=== PATIENT | female | born 1960 | race Two or more races ===

== ENCOUNTER 2024-05-05 23:25 | Inpatient (IN) | payer MEDICAID, OTHER ==
[~2024-05-05] VITALS: Ht 154.9 cm; Wt 82.8 kg
--- NOTE | 2024-05-05 23:43 | ED.PDOC ---
General HPI Comments 64-year-old female who came to ER for vaginal bleeding. Patient states about 2 years ago she underwent bladder surgery at [facility]. Recently she has been having pelvic pain, and noted that a mass has been protruding out of her vaginal area, associated with watery discharge and vaginal bleeding. Patient has still yet to see an Urologist regarding this issue Chief Complaint: Vaginal Bleeding Time Seen by MD: 23:53 Reviewed notes: Nurses Notes Allergies: Coded Allergies: NO KNOWN ALLERGIES (Unverified , 05/05/24) Information Source: Patient Mode of Arrival: Ambulatory Severity: Moderate Inability to void: Mild Timing: Months Duration: Intermittent Has not urinated for: Minutes Prehospital treatment: None Onset: Spontaneous History of: Recent post-op Past Medical History PAST MEDICAL HISTORY: HTN, Denies Surgical History (Other): Bladder surgery ANODIZER History: Denies all ANODIZER Hx Family History Family History: Reviewed,noncontributory to illness Social History Smoker: Non-Smoker Alcohol: Denies ETOH Use Drugs: Denies Drug Use Lives In: Home Constitutional: denies: chills, diaphoresis, fatigue, fever, malaise, sweats, weakness, others EENTM: denies: blurred vision, double vision, ear bleeding, ear discharge, ear drainage, ear pain, ear ringing, eye pain, eye redness, hearing loss, mouth pain, mouth swelling, nasal discharge, nose bleeding, nose congestion, nose pain, photophobia, tearing, throat pain, throat swelling, voice changes, others Respiratory: denies: cough, hemoptysis, orthopnea, SOB at rest, shortness of breath, SOB with excertion, stridor, wheezing, others Cardiovascular: denies: chest pain, dizzy spells, diaphoresis, Dyspnea on exertion, edema, irregular heart beat, left arm pain, lightheadedness, palpi tations, PND, syncope, others Gastrointestinal: denies: abdomen distended, abdominal pain, blood streaked bowels, constipated, diarrhea, dysphagia, difficulty swallowing, hematemesis, melena, nausea, poor appetite, poor fluid intake, rectal bleeding, rectal pain, vomiting, others Genitourinary: reports: abnormal vagina bleeding, pain; denies: burning, dyspareunia, dysuria, flank pain, frequency, hematuria, incontinence, , vagina discharge, urgency, others Neurological: denies: dizziness, fainting, headache, left sided numbness, left sided weakness, numbness, paresthesia, pre-existing deficit, right sided numbness, right sided weakness, seizure, speech problems, tingling, tremors, weakness, others Musculoskeletal: denies: back pain, gout, joint pain, joint swelling, muscle pain, muscle stiffness, neck pain, others Integumetry: denies: bruises, change in color, change in hair/nails, dryness, laceration, lesions, lumps, rash, wounds, others Allergic/Immunocompromised: denies: Difficulty Healing, Frequent Infections, Hives, Itching, others Hematologic/Lymphatic: denies: anemia, blood clots, easy bleeding, easy bruising, swollen glands, others Endocrine: denies: excessive hunger, excessive sweating, excessive thirst, excessive urination, flushing, intolerance to cold, intolerance to heat, unexp lained weight gain, unexplained weight loss, others Psychiatric: denies: anxiety, bipolar disorder, depression, hopeless, panic disorder, schizophrenia, sleepless, suicidal, others Physical Exam General Appearance: No Apparent Distress, Normal HEENT: Normal ENT Inspection, Pharynx Normal, TMs Normal Neck: Full Range of Motion, Non-Tender, Normal, Normal Inspection Respiratory: Chest Non-Tender, Lungs Clear, No Accessory Muscle Use, No Respiratory Distress, Normal Breath Sounds Cardiovascular: No Edema, No JVD, No Murmur, No Gallop, Normal Peripheral Pulses, Regular Rate/Rhythm Breast Exam: Deferred Gastrointestinal: No Organomegaly, Non Tender, No Pulsatile Mass, Normal Bowel Sounds, Soft Genitalia: Deferred Pelvic: Deferred Rectal: Deferred Extremities: No calf tenderness, Normal capillary refill, Normal inspection, Normal range of motion, Non-tender, No pedal edema Musculoskeletal : Apperance: Normal Neurologic: Alert, guest room attendant II-XII nml as Tested, No Motor Deficits, Normal Affect, Normal Mood, No Sensory Deficits Cerebellar Function: Normal Reflexes: Normal Skin: Dry, Normal Color, Warm Lymphatic: No Adenopathy Was a procedure done? Was a procedure done?: No Differential Diagnosis Kidney stone (Female): N/A Urinary Problem (Female): Post-op complication, Pyelonephritis, Urinary retention, Urolithiasis, Other (Uterine prolapse) X-Ray, Labs, Meds, VS Vital Signs Date Time Temp Pulse Resp B/P (MAP) Pulse Ox O2 Delivery O2 Flow Rate FiO2 05/06/24 01:05 105 16 158/86 05/06/24 00:43 98.9 105 18 158/86 (110) 96 98.9 05/06/24 00:43 105 18 96 Room Air 05/06/24 00:43 105 16 158/86 05/05/24 23:39 98.3 111 16 159/99 (119) 97 Lab Test 05/05/24 23:48 05/05/24 23:42 Range/Units White Blood Count 9.2 4.4-10.8 10^3/uL Red Blood Count 4.27 4.0-5.20 10^6/uL Hemoglobin 13.6 12.2-16.2 g/dL Hematocrit 40.6 36.0-46.0 % Mean Corpuscular Volume 95.0 80.0-100.0 fL Mean Corpuscular Hemoglobin 31.9 28.0-32.0 pg Mean Corpuscular Hemoglobin Concent 33.5 32.0-36.0 g/dL Red Cell Distribution Width 14.0 11.8-14.3 % Platelet Count 258 140-450 10^3/uL Mean Platelet Volume 9.2 6.9-10.8 fL Neutrophils (%) (Auto) 71.3 37.0-80.0 % Lymphocytes (%) (Auto) 21.2 10.0-50.0 % Monocytes (%) (Auto) 4.9 0.0-12.0 % Eosinophils (%) (Auto) 2.3 0.0-7.0 % Basophils (%) (Auto) 0.3 0.0-2.0 % Neutrophils # (Auto) 6.6 1.6-8.6 10 ^3/uL Lymphocytes # (Auto) 2.0 0.4-5.4 10 ^3/uL Monocytes # (Auto) 0.5 0-1.3 10 ^3/uL Eosinophils # (Auto) 0.2 0-0.8 10 ^3/uL Basophils # (Auto) 0 0-0.2 10 ^3/uL Nucleated Red Blood Cells 0.0 % Sodium Level 139 136-145 mmol/L Potassium Level 3.9 3.5-5.1 mmol/L Chloride Level 107 98-107 mmol/L Carbon Dioxide Level 26 20-31 mmol/L Anion Gap 6 5-15 Blood Urea Nitrogen 13 9-23 mg/dL Creatinine 0.84 0.550-1.02 mg/dL Glomerular Filtration Rate Calc 78 >90 mL/min BUN/Creatinine Ratio 15.5 10.0-20.0 Serum Glucose 111 H 74-106 mg/dL Calcium Level 9.8 8.7-10.4 mg/dL Urine Color Straw Yellow Urine Clarity Clear Clear Urine pH 6.0 5.0-9.0 Urine Specific [place] 1.007 1.001-1.035 Urine Protein Negative Negative Urine Ketones Negative Negative Urine Blood Negative Negative /uL Urine Nitrite Negative Negative Urine Bilirubin Negative Negative Urine Urobilinogen Normal Negative mg/dL Urine Leukocyte Esterase Trace Negative /uL Urine RBC 1 0 - 4 /hpf Urine WBC None seen 0 - 5 /hpf Urine Squamous Epithelial Cells Few <5 /hpf Urine Bacteria None seen None Seen /hpf Urine Glucose Normal Normal mg/dL Current Medications Medications (Trade) Dose Ordered Sig/[place] Route Start Time Stop Time Status Last Admin Sodium Chloride 1,000 ml @ 1,000 mls/hr Q1H ONCE IV 05/05/24 23:45 05/06/24 00:44 DC 05/06/24 00:37 Ondansetron HCl (Zofran) 4 mg ONCE ONCE IV 05/05/24 23:45 05/05/24 23:46 DC 05/06/24 00:43 Morphine Sulfate 4 mg ONCE ONCE IV 05/05/24 23:45 05/05/24 23:46 DC 05/06/24 00:43 Exam: CT CT AB PEL WITH IV CON ONLY Findings: Lung Bases: No acute or significant lung base finding. Normal heart size. No p leural or pericardial effusion. Liver: The liver is normal in size. No focal lesions. Normal hepatic vascular enhancement. Gallbladder and Biliary Tree: Gallbladder is surgically absent. Expected dilation of the common bile duct. Spleen: Unremarkable Pancreas: The pancreas is normal in appearance without focal lesions or abnormal enhancement. Adrenal Glands: Unremarkable Kidneys: Kidneys demonstrate normal symmetric enhancement without focal lesions, calculi or hydronephrosis. Bladder: Unremarkable Bowel: Small hiatal hernia.. Small bowel and colon are normal in caliber and distribution. The appendix is not visualized; however, no secondary findings of acute appendicitis identified. Sigmoid colon diverticulosis. Ascites: Absent Lymphadenopathy: No mesenteric, retroperitoneal or periportal lymphadenopathy. Abdominal Wall and Mesentery: Unremarkable. Vasculature: The visualized abdominal aorta is normal in size and caliber. Abdominal and pelvic vessels demonstrate normal enhancement. Pelvic Organs: Unremarkable Musculoskeletal: No aggressive focal bony lesions, acute fractures or dislocation. IMPRESSION: No acute abdominal or pelvic finding. No definitive evidence to suggest prolapse. If there is high clinical concern consider further evaluation with pelvic MRI. Ancillary findings as described above. Time of 1ST Reevaluation: 23:49 Reevaluation 1ST: Unchanged Patient Education/Counseling: Diagnosis, Treatment Family Education/Counseling: No Family Present Departure 1 Departure Time of Disposition: 01:59 (Patient presented with abdominal pain that was concerning for possible appendicits, gastritis, cholecystitis, colitis, gastroenteritis, sbo, or orther possible surgical emergency. Data: 1. I ordered and reviewed the result of at least 3 labs including a CBC, BMP, and Urinalysis. 2. I independently interpreted the following tests: CT Abdoment and Pelvis appears benign .Risk:This patient has a high risk of morbidity due to further diagnostic testing or treatment and may suffer from an acute abdominal process disorder. Workup reveals intractable abdominal pain and need for various consultation and patient should be admitted for further workup. and possible expert consultation. ) Impression: Primary Impression: Pelvic pain Additional Impressions: Lower abdominal pain Weakness Disposition: 09 ADMITTED INPATIENT Admit to: Med Surg Condition: Serious Critical Care Note Critical Care Time?: Yes Critical care comment: Intractable abdominal pain Authorized and Performed by: Damien Torres MD Total critical care time: Approximately 33 minutes Due to a high probability of clinically significant, life threatening deterioration, the patient required my highest level of preparedness to intervene emergently and I personally spent this critical care time directly and personally managing the patient. This critical care time included obtaining a history; examining the patient; pulse oximetry; ordering and review of studies; arranging urgent treatment with development of a management plan; evaluation of patient's response to treatment; frequent reassessment; and, discussions with other providers. This critical care time was performed to assess and manage the high probability of imminent, life-threatening deterioration that could result in multi-organ failure. It was exclusive of separately billable procedures and treating other patients and teaching time. Please see my other sections and the rest of the note for further information on patient assessment and treatment. Stability Stability form required: No Heart Score Heart Score: Heart Score Response (Comments) Value History N/A 0 EKG N/A 0 Age N/A 0 Risk Factors N/A 0 Troponin N/A 0 Total 0 I personally scribed for DAMIEN TORRES MD ([facility]) on 05/05/24 at 23:43. Electronically submitted by Rocky Delgado ([facility] I personally scribed for DAMIEN TORRES MD ([facility]) on 05/05/24 at 23:53. Electronically submitted by Rocky Delgado ([facility] I personally scribed for DAMIEN TORRES MD ([facility]) on 05/06/24 at 02:03. Electronically submitted by Rocky Delgado ([facility] DAMIEN TORRES MD May 05, 2024 23:43
[2024-05-05 23:59] LABS: Urine Bacteria None Seen /hpf (None Seen); Urine WBC None Seen /hpf (0 - 5)
[2024-05-06] LABS: Basophils # (auto) 0 10 ^3/uL (0-0.2); Basophils % (auto) 0.3 % (0.0-2.0); Eosinophils # (auto) 0.2 10 ^3/uL (0-0.8); Eosinophils % (auto) 2.3 % (0.0-7.0); Hematocrit 40.6 % (36.0-46.0); Hemoglobin 13.6 g/dL (12.2-16.2); Lymphocytes % (auto) 21.2 % (10.0-50.0); Mean Corpuscular Hemoglobin 31.9 pg (28.0-32.0); Mean Corpuscular Hgb Conc. 33.5 g/dL (32.0-36.0); Monocytes # (auto) 0.5 10 ^3/uL (0-1.3); Monocytes % (auto) 4.9 % (0.0-12.0); Neutrophils # (auto) 6.6 10 ^3/uL (1.6-8.6); Neutrophils % (auto) 71.3 % (37.0-80.0); Platelet Count (auto) 258 10^3/uL (140-450); Red Blood Cells 4.27 10^6/uL (4.0-5.20); White Blood Cell 9.2 10^3/uL (4.4-10.8)
[2024-05-06 00:06] LABS: Urine Blood Negative /uL (Negative); Urine Clarity Clear (Clear); Urine Protein, UAD Negative (Negative); Urine Specific Gravity 1.007 (1.001-1.035); Urine Urobilinogen Normal (Negative)
[2024-05-06 00:07] LABS: Chloride 107 mmol/L (98-107); Potassium 3.9 mmol/L (3.5-5.1); Sodium 139 mmol/L (136-145)
[2024-05-06 00:08] LABS: Anion Gap 6 (5-15); Carbon Dioxide 26 mmol/L (20-31)
[2024-05-06 00:09] LABS: Calcium 9.8 mg/dL (8.7-10.4)
[2024-05-06 00:09] LABS: Urine Color STRAW (Yellow)
[2024-05-06 00:13] LABS: BUN/Creatinine Ratio 15.5 (10.0-20.0); Blood Urea Nitrogen 13 mg/dL (9-23); Glucose 111 mg/dL (74-106)
[2024-05-06] MEDS: SODIUM CHLORIDE 0.9% 1,000 ML IV ONE (00:37)
[2024-05-06] MEDS: MORPHINE SULFATE 4 MG/ML SYR/VIAL IV ONE (00:43)
[2024-05-06] MEDS: ONDANSETRON HCL 4 MG/2 ML VIAL IV ONE (00:43)
[2024-05-06] MEDS: IOHEXOL 300 MG/ML 100ML BOTTLE IJ ONE (00:55)
--- NOTE | 2024-05-06 01:47 | DVH ---
Exam: CT CT AB PEL WITH IV CON ONLY History: lower abdominal pain, c/f prolapse Comparison Study: None available at time of dictation. Technique: Multidetector spiral CT of the abdomen and pelvis was performed from lung bases to pubic s ymphysis. Intravenous contrast was administered during this examination. Portal venous imaging was obtained. Axial, coronal and sagittal multiplanar reformats were performed by the technologist on a separate workstation. Radiation Dose : 1. Abdomen/Pelvis: CTDIvol 14 mGy, DLP 814 mGy*cm. Findings: Lung Bases: No acute or significant lung base finding. Normal heart size. No pleural or pericardial effusion. Liver: The liver is normal in size. No focal lesions. Normal hepatic vascular enhancement. Gallbladder and Biliary Tree: Gallbladder is surgically absent. Expected dilation of the common bile duct. Spleen: Unremarkable Pancreas: The pancreas is normal in appearance without focal lesions or abnormal enhancement. Adrenal Glands: Unremarkable Kidneys: Kidneys demonstrate normal symmetric enhancement without focal lesions, calculi or hydroneph rosis. Bladder: Unremarkable Bowel: Small hiatal hernia.. Small bowel and colon are normal in caliber and distribution. The appen radha is not visualized; however, no secondary findings of acute appendicitis identified. Sigmoid colon diverticulosis. Ascites: Absent Lymphadenopathy: No mesenteric, retroperitoneal or periportal lymphadenopathy. Abdominal Wall and Mesentery: Unremarkable. Vasculature: The visualized abdominal aorta is normal in size and caliber. Abdominal and pelvic vess els demonstrate normal enhancement. Pelvic Organs: Unremarkable Musculoskeletal: No aggressive focal bony lesions, acute fractures or dislocation. IMPRESSION: No acute abdominal or pelvic finding. No definitive evidence to suggest prolapse. If there is high c linical concern consider further evaluation with pelvic MRI. Ancillary findings as described above.
[2024-05-06] MEDS ORDERED: DOCUSATE SOD 100 MG CAP PO PRN (02:30)
[2024-05-06] MEDS ORDERED: ONDANSETRON HCL 4 MG/2 ML VIAL IV PRN (02:30)
[2024-05-06] MEDS ORDERED: hydrALAZINE HCL 20 MG/ML VL IV PRN (02:30)
--- NOTE | 2024-05-06 04:14 | DVHHP2 ---
History of Present Illness Reason for Visit: Vaginal bleed History of Present Illness The patient is a 64-year-old female with past medical history of hypertension who presented to [facility] ED with complaint of vaginal bleeding. Patient reports about two years ago she underwent bladder surgery at [facility], recently been having pelvic pain, noted that she has a mass protruding out of her vaginal area, associated with watery discharge and vaginal bleeding, getting worse that prompted this visit. Patient was seen evaluated in the ED, laboratory data shows WBC 9.2, platelets 258, hemoglobin 13.6, hematocrit 40.6, sodium 139, potassium 3.9, BUN 13, creatinine 0.84, glucose 111, blood pressure 153/86, heart rate 105, temperature 98.9 F O2 saturation 96% on room air. Abdomen/pelvis CT showed no acute abdominal or pelvic findings, no definitive evidence to suggest prolapse. Please see medication orders section in the computer. On my assessment, patient denied chest pain, no headache, no dizziness, no shortness of breath, no nausea, no vomiting, no fever, no chills. Patient was admitted for further evaluation and medical management. Past Medical History HTN Past Surgical History Bladder surgery Family History Reviewed, noncontributory to the management of this case. Past Social History The patient lives at home, denies smoking, alcohol or illicit drugs abuse. Review of Systems Constitutional: Yes: Weakness; No: Fever, Chills, Sweats, Malaise, Other Eyes: No: Pain, Vision change, Conjunctivae inflammation, Eyelid inflammation, Other, Redness ENT: No: Ear pain, Ear discharge, Nose pain, Nose discharge, Nose congestion, Mouth pain, Mouth swelling, Throat pain, Throat swelling, Other Respiratory: No: Cough, Dry, Shortness of breath, SOB with excertion, Wheezing, Hemoptysis, Pleuritic Pain, Sputum, Wheezing, Other Cardiovascular: No: Chest Pain, Palpitations, Orthopnea, Paroxysmal Noc. Dyspnea, Edema, Lt Headedness, Other Gastrointestinal: No: Nausea, Vomiting, Abdominal Pain, Diarrhea, Constipation, Melena, Hematochezia, Other Genitourinary: No Dysuria, No Frequency, No Incontinence, No Hematuria, No Retention; Other (Abdominal vagina bleeding, pain.) Musculoskeletal: No: other, neck pain, shoulder pain, arm pain, back pain, hand pain, leg pain, foot pain Skin: No: Rash, Lesions, Jaundice, Bruising, Other Neurological: No: Weakness, Numbness, Incoordination, Change in speech, Confusion, Seizures, Other Allergies: Coded Allergies: NO KNOWN ALLERGIES (Unverified , 05/05/24) Medications Current Medications Medications Dose Ordered Sig/[place] Route Start Time Stop Time Status Last Admin Dose Admin Sodium Chloride 10 ml Q8HR IV 05/06/24 06:00 Acetaminophen/ Hydrocodone Bitart 1 tab Q4HP PRN PO 05/06/24 02:30 Ondansetron HCl 4 mg Q4HP PRN IV 05/06/24 02:30 Docusate Sodium 100 mg BIDPRN PRN PO 05/06/24 02:30 Acetaminophen 650 mg Q6HP PRN PO 05/06/24 02:30 Hydralazine HCl 10 mg Q6HP PRN IV 05/06/24 02:30 Nitroglycerin 0.4 mg Q5MINP PRN SL 05/06/24 04:15 Morphine Sulfate 2 mg Q30M PRN IV 05/06/24 04:15 Exam Vital Signs Vital Signs Date Time Temp Pulse Resp B/P (MAP) Pulse Ox O2 Delivery O2 Flow Rate FiO2 05/06/24 01:05 105 16 158/86 05/06/24 00:43 98.9 96 98.9 05/06/24 00:43 Room Air General Appearance: Alert, Oriented X3, Cooperative, No acute distress HEENT: Atraumatic, PERRLA, EOMI, Mucous membr. moist/pink Respiratory: Clear to auscultation, Normal air movement Cardiovascular: Regular rate, Normal S1, Normal S2, No murmurs Abdominal: Normal bowel sounds, Soft, No tenderness, No hepatospenomegaly, No masses Extremities: No clubbing, No cyanosis, No edema, Normal pulses, No tenderness/swelling Skin: No rashes, No breakdown, No significant lesion Neuro: Normal gait, Normal speech, Strength at 5/5 X4 ext, Normal tone, Sensation intact, Cranial nerves 3-12 NL, Reflexes 2+ Psych/Mental Status: Mental status NL, Mood NL Labs/Xrays Labs Test 05/05/24 23:48 05/05/24 23:42 Range/Units White Blood Count 9.2 4.4-10.8 10^3/uL Red Blood Count 4.27 4.0-5.20 10^6/uL Hemoglobin 13.6 12.2-16.2 g/dL Hematocrit 40.6 36.0-46.0 % Mean Corpuscular Volume 95.0 80.0-100.0 fL Mean Corpuscular Hemoglobin 31.9 28.0-32.0 pg Mean Corpuscular Hemoglobin Concent 33.5 32.0-36.0 g/dL Red Cell Distribution Width 14.0 11.8-14.3 % Platelet Count 258 140-450 10^3/uL Mean Platelet Volume 9.2 6.9-10.8 fL Neutrophils (%) (Auto) 71.3 37.0-80.0 % Lymphocytes (%) (Auto) 21.2 10.0-50.0 % Monocytes (%) (Auto) 4.9 0.0-12.0 % Eosinophils (%) (Auto) 2.3 0.0-7.0 % Basophils (%) (Auto) 0.3 0.0-2.0 % Neutrophils # (Auto) 6.6 1.6-8.6 10 ^3/uL Lymphocytes # (Auto) 2.0 0.4-5.4 10 ^3/uL Monocytes # (Auto) 0.5 0-1.3 10 ^3/uL Eosinophils # (Auto) 0.2 0-0.8 10 ^3/uL Basophils # (Auto) 0 0-0.2 10 ^3/uL Nucleated Red Blood Cells 0.0 % Sodium Level 139 136-145 mmol/L Potassium Level 3.9 3.5-5.1 mmol/L Chloride Level 107 98-107 mmol/L Carbon Dioxide Level 26 20-31 mmol/L Anion Gap 6 5-15 Blood Urea Nitrogen 13 9-23 mg/dL Creatinine 0.84 0.550-1.02 mg/dL Glomerular Filtration Rate Calc 78 >90 mL/min BUN/Creatinine Ratio 15.5 10.0-20.0 Serum Glucose 111 H 74-106 mg/dL Calcium Level 9.8 8.7-10.4 mg/dL Urine Color Straw Yellow Urine Clarity Clear Clear Urine pH 6.0 5.0-9.0 Urine Specific [place] 1.007 1.001-1.035 Urine Protein Negative Negative Urine Ketones Negative Negative Urine Blood Negative Negative /uL Urine Nitrite Negative Negative Urine Bilirubin Negative Negative Urine Urobilinogen Normal Negative mg/dL Urine Leukocyte Esterase Trace Negative /uL Urine RBC 1 0 - 4 /hpf Urine WBC None seen 0 - 5 /hpf Urine Squamous Epithelial Cells Few <5 /hpf Urine Bacteria None seen None Seen /hpf Urine Glucose Normal Normal mg/dL PATIENT: NAT WHITE ACCT: [id number] UNIT: [id number] : 1960 LOC: ER ROOM / BED: / AGE / SEX: 64 / F ADM STATUS: REG ER SERVICE [id number] ORDERING PHYSICIAN: DAMIEN PENA MD PROCEDURE(s): ABPLIV - CT AB PEL WITH IV CON ONLY REASON: lower abdominal pain, c/f prolapse ORDER NUMBER(s): [id number], ACCESSION NUMBER(s): [id number] Exam: CT CT AB PEL WITH IV CON ONLY History: lower abdominal pain, c/f prolapse Comparison Study: None available at time of dictation. Technique: Multidetector spiral CT of the abdomen and pelvis was performed from lung bases to pubic symphysis. Intravenous contrast was administered during this examination. Portal venous imaging was obtained. Axial, coronal and sagittal multiplanar reformats were performed by the technologist on a separate workstation. Radiation Dose : 1. Abdomen/Pelvis: CTDIvol 14 mGy, DLP 814 mGy*cm. Findings: Lung Bases: No acute or significant lung base finding. Normal heart size. No pleural or pericardial effusion. Liver: The liver is normal in size. No focal lesions. Normal hepatic vascular enhancement. Gallbladder and Biliary Tree: Gallbladder is surgically absent. Expected dilation of the common bile duct. Spleen: Unremarkable Pancreas: The pancreas is normal in appearance without focal lesions or abnormal enhancement. Adrenal Glands: Unremarkable Kidneys: Kidneys demonstrate normal symmetric enhancement without focal lesions, calculi or hydronephrosis. Bladder: Unremarkable Bowel: Small hiatal hernia. Small bowel and colon are normal in caliber and distribution. The appendix is not visualized; however, no secondary findings of acute appendicitis identified. Sigmoid colon diverticulosis. Ascites: Absent Lymphadenopathy: No mesenteric, retroperitoneal or periportal lymphadenopathy. Abdominal Wall and Mesentery: Unremarkable. Vasculature: The visualized abdominal aorta is normal in size and caliber. Abdominal and pelvic vessels demonstrate normal enhancement. Pelvic Organs: Unremarkable Musculoskeletal: No aggressive focal bony lesions, acute fractures or dislocation. IMPRESSION: No acute abdominal or pelvic finding. No definitive evidence to suggest prolapse. If there is high clinical concern consider further evaluation with pelvic MRI. Ancillary findings as described above. Assessment/Plan Assessment/Plan Vaginal bleeding Pelvic pain Lower abdominal pain Generalized weakness Plan 1. Admit to telemetry unit 2. Breathing treatment 3. Pain control management 4. Management of fluids and electrolytes 5. Consultation for hospitalist 6. Diagnostic tests abdomen/pelvis CT 7. DVT prophylaxis on SCDs 8. Repeat labs CBC, CMP in a.m. 9. Continue with current medical management 10. Treatment plan discussed with patient and RN. Patient verbalized understanding. Plan discussed with: Patient, Other (RN) My Orders Orders - RAJINDER YANEZ DNP Procedure Category Date Status Time Allergies JULIO 05/06/24 In Process 02:27 Code Status CODE 05/06/24 Transmitted 02:27 Sodium Chloride Lock PHA 05/06/24 In Process (Saline Lock Ns) 06:00 Oxygen Per Hour RT 05/06/24 Transmitted 02:27 Hydrocodone-Acet PHA 05/06/24 In Process 5/325mg Tab ([place] 02:30 Ondansetron Hcl PHA 05/06/24 In Process (Zofran) 02:30 Docusate Sodium PHA 05/06/24 In Process Capsule (Colace 02:30 Complete Blood Count LAB 05/07/24 Verified 04:00 Comprehensive LAB 05/07/24 Verified Metabolic Panel 04:00 Cardiac DIET 05/06/24 Transmitted Diet-2gna,Lofat,Lochol Breakfast Condition: Serious JULIO 05/06/24 In Process 02:27 Acetaminophen Tablet PHA 05/06/24 In Process (Tylenol Tablet) 02:30 Bedrest With Bathroom JULIO 05/06/24 In Process Privileg 02:27 Sequential JULIO 05/06/24 In Process Compression Device Hydralazine Injection PHA 05/06/24 In Process (Apresoline Inject 02:30 Admit ADMIT 05/06/24 Transmitted 04:09 Nitroglycerin PHA 05/06/24 In Process Sublingual (Ntrostat 04:15 Morphine Sulfate PHA 05/06/24 In Process Injection 04:15 Notify Of Changes JULIO 05/06/24 In Process From Base 04:09 [employer] Consultant For JULIO 05/06/24 In Process 24 Hours 04:09 Emergency Dysrhythmia JULIO 05/06/24 In Process Protocol 04:09 Rhythm Strips Once JULIO 05/06/24 In Process Every Shift 04:09 Oxygen By Nasal RT 05/06/24 Transmitted Cannula 04:09 Problem List: (1) Vaginal bleeding (2) Pelvic pain (3) Lower abdominal pain (4) Generalized weakness Date of Service: May 06, 2024 Billing Provider: RAJINDER YANEZ DNP Common Visit Codes: [id number] INP/OBS CARE (HIGH) RAJINDER YANEZ DNP May 06, 2024 04:14
[2024-05-06] MEDS ORDERED: MORPHINE SULFATE INJ 2 MG/ml SYRG IV PRN (04:15)
[2024-05-06] MEDS ORDERED: NITROGLYCERIN 0.4 MG SL TAB SL PRN (04:15)
[2024-05-06] MEDS: SODIUM CHLOR 0.9% PF (SALINE LOCK) 10ML VIAL/SYR IV SCH (06:17)
[2024-05-06 06:26] LABS: Basophils # (auto) 0 10 ^3/uL (0-0.2); Basophils % (auto) 0.4 % (0.0-2.0); Eosinophils # (auto) 0.2 10 ^3/uL (0-0.8); Eosinophils % (auto) 2.6 % (0.0-7.0); Hematocrit 35.6 % (36.0-46.0); Hemoglobin 11.8 g/dL (12.2-16.2); Lymphocytes # (auto) 1.4 10 ^3/uL (0.4-5.4); Lymphocytes % (auto) 19.1 % (10.0-50.0); Mean Corpuscular Hgb Conc. 33.2 g/dL (32.0-36.0); Mean Corpuscular Volume 96.4 fL (80.0-100.0); Monocytes # (auto) 0.4 10 ^3/uL (0-1.3); Monocytes % (auto) 5.5 % (0.0-12.0); Neutrophils # (auto) 5.2 10 ^3/uL (1.6-8.6); Neutrophils % (auto) 72.4 % (37.0-80.0); Platelet Count (auto) 202 10^3/uL (140-450); White Blood Cell 7.1 10^3/uL (4.4-10.8)
[2024-05-06 06:37] LABS: Alanine Aminotransferase 15 U/L (7-40); Albumin 3.9 g/dL (3.2-4.8); Alkaline Phosphatase 72 U/L (46-116); Anion Gap 6 (5-15); Aspartate Aminotransferase 11 U/L (13-40); BUN/Creatinine Ratio 14.3 (10.0-20.0); Blood Urea Nitrogen 10 mg/dL (9-23); Carbon Dioxide 24 mmol/L (20-31); Chloride 109 mmol/L (98-107); Glucose 96 mg/dL (74-106); Potassium 3.8 mmol/L (3.5-5.1); Sodium 139 mmol/L (136-145)
[2024-05-06 06:38] LABS: Bilirubin, Total 0.7 mg/dL (0.2-1.0); Total Protein 6.7 g/dL (5.7-8.2)
[2024-05-06 07:37] VITALS: PULSE 78; RESP 18; O2SAT 94
[2024-05-06] MEDS: HYDROcodone-ACET 5/325MG TAB PO PRN (10:54)
[2024-05-06] MEDS ORDERED: LOSA-534 PO (14:59)
--- NOTE | 2024-05-06 15:16 | DVHINCON2 ---
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 c/o "bulge" in vagina x 3 months. Feels a "painless mass protruding" at times, worse with activity. Endorse urinary urgency, and leakage of urine w/ cough and strain (Mixed incontinence) Denies hematuria or dysuria. Presented to ER c/o pain in vulvar area and bleeding approx 1 week ago. Denies fever/chills Last PAP normal 2 yr ago per patient Surg Hx: Lap Cholecystectomy Med Hx: HTN, "pre-diabetic" Meds: Losartan, Ibuprofen PRN pain Family Hx: Denies hx of breast, uterine, or cervical cancers. Social Hx: Denies EtOH, Drug or tobacco use Review of Systems Constitutional: No symptom reported Ears, Nose, & Throat: No symptom reported Eyes: No symptom reported Pulmonary/Respiratory: No symptom reported Cardiovascular: No symptom reported Gastrointestinal: No symptom reported Genitourinary: Incontinence, Urgency Musculoskeletal: No symptom reported Skin: No symptom reported Psychiatric: No symptom reported Endocrine: No symptom reported Hemotologic/Lymphatic: No symptom reported H&P Exam Vital Signs Vital Signs Date Time Temp Pulse Resp B/P (MAP) Pulse Ox O2 Delivery O2 Flow Rate FiO2 05/06/24 14:00 87 17 114/60 (78) 96 05/06/24 07:37 Room Air* 0 21 05/06/24 07:36 98.2 98.2 General Appeara: Well developed, Well nourished, Normal Appearance, Other (Non toxic, no acute distress) Head Exam: Normal inspection Eye Exam: bilateral eye PERRL Mouth: Normal Inspection Pulmonary/Respiratory: Normal inspection Cardiovascular/Chest: Normal inspection Abdominal Exam: Normal bowel sounds, No tenderness, No masses Rectal Exam: Deferred Pelvic Exam: Lesions (ulcerated lesion 1cm, with skin abscess right labium majora), Ulcers, Other (No active bleeding, + Cystocele to introitus w/ valsalva, hypermobile urethra noted) Tendon/ Neuro: Normal 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: Normal hearing, Normal speech Neuro/Mental St: Alert, Oriented Appearance: Appropriate appearance Thoughts/Psych: Normal thought pattern Labs/Xrays Labs Test 05/06/24 05:52 05/05/24 23:42 Range/Units White Blood Count 7.1 4.4-10.8 10^3/uL Red Blood Count 3.70 L 4.0-5.20 10^6/uL Hemoglobin 11.8 L 12.2-16.2 g/dL Hematocrit 35.6 #L 36.0-46.0 % Mean Corpuscular Volume 96.4 80.0-100.0 fL Mean Corpuscular Hemoglobin 32.0 28.0-32.0 pg Mean Corpuscular Hemoglobin Concent 33.2 32.0-36.0 g/dL Red Cell Distribution Width 14.0 11.8-14.3 % Platelet Count 202 140-450 10^3/uL Mean Platelet Volume 9.0 6.9-10.8 fL Neutrophils (%) (Auto) 72.4 37.0-80.0 % Lymphocytes (%) (Auto) 19.1 10.0-50.0 % Monocytes (%) (Auto) 5.5 0.0-12.0 % Eosinophils (%) (Auto) 2.6 0.0-7.0 % Basophils (%) (Auto) 0.4 0.0-2.0 % Neutrophils # (Auto) 5.2 1.6-8.6 10 ^3/uL Lymphocytes # (Auto) 1.4 0.4-5.4 10 ^3/uL Monocytes # (Auto) 0.4 0-1.3 10 ^3/uL Eosinophils # (Auto) 0.2 0-0.8 10 ^3/uL Basophils # (Auto) 0 0-0.2 10 ^3/uL Nucleated Red Blood Cells 0.0 % Sodium Level 139 136-145 mmol/L Potassium Level 3.8 3.5-5.1 mmol/L Chloride Level 109 H 98-107 mmol/L Carbon Dioxide Level 24 20-31 mmol/L Anion Gap 6 5-15 Blood Urea Nitrogen 10 9-23 mg/dL Creatinine 0.70 0.550-1.02 mg/dL Glomerular Filtration Rate Calc 97 >90 mL/min BUN/Creatinine Ratio 14.3 10.0-20.0 Serum Glucose 96 74-106 mg/dL Calcium Level 9.0 8.7-10.4 mg/dL Total Bilirubin 0.7 0.2-1.0 mg/dL Aspartate Amino Transferase (AST) 11 L 13-40 U/L Alanine Aminotransferase (ALT) 15 7-40 U/L Alkaline Phosphatase 72 46-116 U/L Total Protein 6.7 5.7-8.2 g/dL Albumin 3.9 3.2-4.8 g/dL Urine Color Straw Yellow Urine Clarity Clear Clear Urine pH 6.0 5.0-9.0 Urine Specific [place] 1.007 1.001-1.035 Urine Protein Negative Negative Urine Ketones Negative Negative Urine Blood Negative Negative /uL Urine Nitrite Negative Negative Urine Bilirubin Negative Negative Urine Urobilinogen Normal Negative mg/dL Urine Leukocyte Esterase Trace Negative /uL Urine RBC 1 0 - 4 /hpf Urine WBC None seen 0 - 5 /hpf Urine Squamous Epithelial Cells Few <5 /hpf Urine Bacteria None seen None Seen /hpf Urine Glucose Normal Normal mg/dL Assessment/Plan Admitting Diagnosis: 1. Acute vulvar pain, ulcerated lesion Right labium majora 2. Vulvar abscess (indurated) 3. Grade 3 Cystocele (to introitus) 4. Mixed urinary incontinence 5. 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 Use Sitz baths and warm compresses also as needed. The site is too hard and indurated, not fluctuant to attempt I&D at this time. The patient is not febrile or septic to warrant operative intervention at this time. Furthermore, given the size, patient's age and ulceration over the vulvar skin a biopsy may be indicated to rule out malignancy (vulvar CA) Recommend check RPR serology and HSV serology too. Cystocele is not an emergency and can be evaluated as an outpatient by urology or UROGYNECOLOGY concomitantly with eval for mixed urinary incontinence. Treatment options w/ pessary, pelvic reconstructive surgery, and suburethral slingplasty (Incontinence procedure) discussed with patient. We will evaluate MANNEQUIN MAKER bleeding with a pelvic US. IF endometrial strip is 4mm or less, no intervention is indicated. If > 5mm, recommend D&C or endometrial biopsy. Patient can follow up outpatient in [facility] clinic for these services. [employer] [facility] WILL SIGN OFF. Thank you for allowing me to participate in the care of this patient. Plan discussed with: Patient Date of Service: May 06, 2024 Billing Provider: LAURA BENNETT DO Common Visit Codes: CONSULT ONLY Consultation Codes: [id number] CONSULT <60MIN LAURA BENNETT DO May 06, 2024 15:15
--- NOTE | 2024-05-06 16:30 | DVH ---
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 TECHNIQUE: Multiple real-time grayscale transabdominal sonographic images along with color and duplex Doppler of the uterus and ovaries were obtained. COMPARISON: None FINDINGS: The uterus uterus not well seen transabdominally or transvaginally. The endometrial stripe measures 0.38 cm. The right ovary not well visualized. The left ovary not well visualized. Complex cystic mass in the left labia measuring 4.8 x 4.5 x 3.9 cm. There is surrounding vascularity Subsequent color and duplex Doppler interrogation of the ovaries demonstrated symmetric vascular flow to both ovaries, though this does not exclude the possibility of torsion due to the dual blood suppl y. IMPRESSION: 1. Complex cystic mass in the labia on the left measuring 4.8 x 4.5 x 3.9 cm with surrounding vascula rity.
[2024-05-06] MEDS: PIPERACILLIN-TAZOB 3.375GM 100 ML IV ONE (17:37)
[2024-05-06 19:23] VITALS: BP 135/70; PULSE 85; RESP 18; TEMP 97.8; O2SAT 97
[2024-05-06] MEDS: ACETAMINOPHEN 325 MG TAB PO PRN (19:48)
[2024-05-06 20:00] VITALS: PULSE 83
--- NOTE | 2024-05-06 20:18 | DVHPN2 ---
Subjective 64 yo F with HNT preDM admitted for vaginal bleeding. Seen by [employer], found to have vaginal ulcer and abscess. Reviewed: H&P Changes from previous H/P or p: No Changes Eyes: No Pain, No Vision change, No Conjunctivae inflammation, No Eyelid inflammation, No Other, No Redness ENT: No Ear pain, No Ear discharge, No Nose pain, No Nose discharge, No Nose congestion, No Mouth pain, No Mouth swelling, No Throat pain, No Throat swelling, No Other Cardiovascular: No Chest Pain, No Palpitations, No Orthopnea, No Paroxysmal Noc. Dyspnea, No Edema, No Lt Headedness, No Other Respiratory: No Cough, No Dry, No Shortness of breath, No SOB with excertion, No Wheezing, No Hemoptysis, No Pleuritic Pain, No Sputum, No Other Gastrointestinal: No Nausea, No Vomiting, No Abdominal Pain, No Diarrhea, No Constipation, No Melena, No Hematochezia, No Other Genitourinary: No Dysuria, No Frequency, No Incontinence, No Hematuria, No Retention; Other (Abdominal vagina bleeding, pain.) Musculoskeletal: No other, No neck pain, No shoulder pain, No arm pain, No back pain, No hand pain, No leg pain, No foot pain Skin: No Rash, No Lesions, No Jaundice, No Bruising, No Other Objective Vitals Vital Signs Date Time Temp Pulse Resp B/P (MAP) Pulse Ox O2 Delivery O2 Flow Rate FiO2 05/06/24 19:23 85 18 97 Room Air* 0 21 05/06/24 19:23 97.8 135/70 (91) 97.8 Medications Current Medications Medications Dose Ordered Sig/[place] Route Start Time Stop Time Status Last Admin Dose Admin Sodium Chloride 10 ml Q8HR IV 05/06/24 06:00 05/06/24 14:25 10 ML Acetaminophen 650 mg Q6HP PRN PO 05/06/24 02:30 05/06/24 19:48 650 MG Piperacillin Sod/ Tazobactam Sod 100 ml @ 25 mls/hr Q8H IV 05/07/24 00:00 Laboratory Results Laboratory Tests 05/06/24 05:52 Chemistry Test 05/05/24 23:48 05/06/24 05:52 Calcium Level 9.8 mg/dL (8.7-10.4) 9.0 mg/dL (8.7-10.4) Albumin 3.9 g/dL (3.2-4.8) Total Protein 6.7 g/dL (5.7-8.2) LFT Test 05/06/24 05:52 Alanine Aminotransferase (ALT) 15 U/L (7-40) Alkaline Phosphatase 72 U/L (46-116) Aspartate Amino Transferase (AST) 11 U/L (13-40) L Total Bilirubin 0.7 mg/dL (0.2-1.0) Urinalysis Test 05/05/24 23:42 Urine Color Straw (Yellow) Urine Clarity Clear (Clear) Urine pH 6.0 (5.0-9.0) Urine Specific [place] 1.007 (1.001-1.035) Urine Protein Negative (Negative) Urine Ketones Negative (Negative) Urine Blood Negative /uL (Negative) Urine Nitrite Negative (Negative) Urine Bilirubin Negative (Negative) Urine Urobilinogen Normal mg/dL (Negative) Urine Leukocyte Esterase Trace /uL (Negative) Urine RBC 1 /hpf (0 - 4) Urine WBC None seen /hpf (0 - 5) Urine Squamous Epithelial Cells Few /hpf (<5) Urine Bacteria None seen /hpf (None Seen) Urine Glucose Normal mg/dL (Normal) Labs and/or images reviewed: Labs reviewed by me, Image(s) reviewed by me Assessment/Plan Assessment/Plan questionable vaginal bleeding rule out AUB cystocele vulvar abscess and ulceration rule out bending roll hand malignancy hypertension preDM bending roll hand consult appreciated continue home meds send for RPR and HSV follow pelvic US per bending roll hand will need follow up for cystocele as outpatient c/w iv abx while in patient diet heart healthy dvt ppx ambulatory Plan discussed with: Patient Date of Service: May 06, 2024 Billing Provider: AGUILA PRICE MD Common Visit Codes: [id number] INP/OBS CARE(HIGH) AGUILA PRICE MD May 06, 2024 20:17
[2024-05-06 20:20] VITALS: PULSE 85; RESP 18; O2SAT 97
[2024-05-06 21:00] VITALS: BP 135/70; PULSE 85; RESP 18; TEMP 97.8; O2SAT 97
[2024-05-06] MEDS: PIPERACILLIN-TAZOB 3.375GM 100 ML IV SCH (23:44)
[2024-05-07 01:00] VITALS: BP 130/69; PULSE 80; RESP 16; TEMP 98; O2SAT 96
[2024-05-07 06:16] LABS: Basophils # (auto) 0 10 ^3/uL (0-0.2); Basophils % (auto) 0.6 % (0.0-2.0); Eosinophils # (auto) 0.2 10 ^3/uL (0-0.8); Eosinophils % (auto) 4.2 % (0.0-7.0); Hematocrit 37.3 % (36.0-46.0); Hemoglobin 12.5 g/dL (12.2-16.2); Lymphocytes # (auto) 1.1 10 ^3/uL (0.4-5.4); Lymphocytes % (auto) 20.9 % (10.0-50.0); Mean Corpuscular Hemoglobin 31.8 pg (28.0-32.0); Mean Corpuscular Hgb Conc. 33.4 g/dL (32.0-36.0); Mean Corpuscular Volume 95.3 fL (80.0-100.0); Monocytes # (auto) 0.3 10 ^3/uL (0-1.3); Monocytes % (auto) 5.2 % (0.0-12.0); Neutrophils # (auto) 3.5 10 ^3/uL (1.6-8.6); Neutrophils % (auto) 69.1 % (37.0-80.0); Platelet Count (auto) 225 10^3/uL (140-450); Red Blood Cells 3.92 10^6/uL (4.0-5.20); Red Cell Distribution Width 13.6 % (11.8-14.3); White Blood Cell 5.1 10^3/uL (4.4-10.8)
[2024-05-07 06:39] LABS: Alanine Aminotransferase 15 U/L (7-40); Albumin 4.2 g/dL (3.2-4.8); Alkaline Phosphatase 73 U/L (46-116); Anion Gap 8 (5-15); Aspartate Aminotransferase 14 U/L (13-40); BUN/Creatinine Ratio 13.3 (10.0-20.0); Blood Urea Nitrogen 10 mg/dL (9-23); Calcium 9.6 mg/dL (8.7-10.4); Carbon Dioxide 24 mmol/L (20-31); Chloride 106 mmol/L (98-107); Glucose 88 mg/dL (74-106); Sodium 138 mmol/L (136-145)
[2024-05-07 06:40] LABS: Total Protein 6.9 g/dL (5.7-8.2)
[2024-05-07 07:06] LABS: RPR Non Reactive (Non Reactive)
[2024-05-07 08:00] VITALS: PULSE 82; RESP 18; O2SAT 97
[2024-05-07 08:43] VITALS: BP 143/85; PULSE 91; RESP 20; TEMP 98.4; O2SAT 98
[2024-05-07] MEDS ORDERED: LEVO500T91 PO (12:51)
--- NOTE | 2024-05-07 12:53 | DVHDS2 ---
Discharge Summary Date of Admission May 06, 2024 at 04:10 Date of Discharge: May 07, 2024 Labs/Diagnostic Data: Laboratory Results Test 05/07/24 05:32 05/06/24 16:00 05/05/24 23:42 White Blood Count 5.1 10^3/uL (4.4-10.8) Red Blood Count 3.92 10^6/uL (4.0-5.20) Hemoglobin 12.5 g/dL (12.2-16.2) Hematocrit 37.3 % (36.0-46.0) Mean Corpuscular Volume 95.3 fL (80.0-100.0) Mean Corpuscular Hemoglobin 31.8 pg (28.0-32.0) Mean Corpuscular Hemoglobin Concent 33.4 g/dL (32.0-36.0) Red Cell Distribution Width 13.6 % (11.8-14.3) Platelet Count 225 10^3/uL (140-450) Mean Platelet Volume 9.1 fL (6.9-10.8) Neutrophils (%) (Auto) 69.1 % (37.0-80.0) Lymphocytes (%) (Auto) 20.9 % (10.0-50.0) Monocytes (%) (Auto) 5.2 % (0.0-12.0) Eosinophils (%) (Auto) 4.2 % (0.0-7.0) Basophils (%) (Auto) 0.6 % (0.0-2.0) Neutrophils # (Auto) 3.5 10 ^3/uL (1.6-8.6) Lymphocytes # (Auto) 1.1 10 ^3/uL (0.4-5.4) Monocytes # (Auto) 0.3 10 ^3/uL (0-1.3) Eosinophils # (Auto) 0.2 10 ^3/uL (0-0.8) Basophils # (Auto) 0 10 ^3/uL (0-0.2) Nucleated Red Blood Cells 0.0 % Sodium Level 138 mmol/L (136-145) Potassium Level 4.0 mmol/L (3.5-5.1) Chloride Level 106 mmol/L (98-107) Carbon Dioxide Level 24 mmol/L (20-31) Anion Gap 8 (5-15) Blood Urea Nitrogen 10 mg/dL (9-23) Creatinine 0.75 mg/dL (0.550-1.02) Glomerular Filtration Rate Calc 89 mL/min (>90) BUN/Creatinine Ratio 13.3 (10.0-20.0) Serum Glucose 88 mg/dL (74-106) Calcium Level 9.6 mg/dL (8.7-10.4) Total Bilirubin 1.0 mg/dL (0.2-1.0) Aspartate Amino Transferase (AST) 14 U/L (13-40) Alanine Aminotransferase (ALT) 15 U/L (7-40) Alkaline Phosphatase 73 U/L (46-116) Total Protein 6.9 g/dL (5.7-8.2) Albumin 4.2 g/dL (3.2-4.8) Rapid Plasma Reagin Non reactive (Non Reactive) Urine Color Straw (Yellow) Urine Clarity Clear (Clear) Urine pH 6.0 (5.0-9.0) Urine Specific [place] 1.007 (1.001-1.035) Urine Protein Negative (Negative) Urine Ketones Negative (Negative) Urine Blood Negative /uL (Negative) Urine Nitrite Negative (Negative) Urine Bilirubin Negative (Negative) Urine Urobilinogen Normal mg/dL (Negative) Urine Leukocyte Esterase Trace /uL (Negative) Urine RBC 1 /hpf (0 - 4) Urine WBC None seen /hpf (0 - 5) Urine Squamous Epithelial Cells Few /hpf (<5) Urine Bacteria None seen /hpf (None Seen) Urine Glucose Normal mg/dL (Normal) Other Laboratory Tests 05/07/24 05:32 Brief Hx & Hospital Course: 64-year-old female admitted for vaginal bleeding, 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 She will be discharged with oral antibiotic and to follow up with flight simulator teacher, patient also have cystocele which will need a Uro flight simulator teacher appointment Condition at Discharge: Good Final Diagnosis/Problems List vulvar abscess and ulcer cystocele htn Discharge Disposition: Home Discharge Instruct/Medications Diet: Consistent carbohydrate Activity: No Restrictions, As Tolerated Follow Up/Referral: follow up with [employer]CR OPERATOR and urogyn Medications: cipro for 14 days Discharge Statement: "Patient was advised to return to the ER or call 911 if any headaches, dizziness, shortness of breath, chest pain, abdominal pain, bleeding, fevers, or worsening of medical condition. Patient was counseled about treatment plan, medications, possible side effects, patientverbalized understanding. All questions were answered to the best of my ability. This discharge took greater then 30 minutes in planning, reviewing documentation, counseling the patient, and discussing with other team members." ASSESSMENT ASSESSMENT Assessment vulvar abscess and ulcer cystocele htn Date of Service: May 07, 2024 Billing Provider: AGUILA PRICE MD Common Visit Codes: [id number] DISCH DAY >30min AGUILA PRICE MD May 07, 2024 12:53
[2024-05-07 13:07] VITALS: BP 118/70; PULSE 86; RESP 20; TEMP 98.6; O2SAT 95
[2024-05-07 15:01] VITALS: BP 118/70; PULSE 80; RESP 18; TEMP 98.8; O2SAT 95
== END 2024-05-07 15:58 | disposition home or self-care (01) | DRG 531 ==
LOC: ER 23:25 → TELE 05-06 04:10 → TELE-WESTW 05-06 18:52
PROVIDERS: ADMIT Nurse Practitioner Family; ATTEND Student in an Organized Health Care Education/Training Program
DX: N76.4 Abscess of vulva (principal); I10 Essential (primary) hypertension; N76.6 Ulceration of vulva; N39.46 Mixed incontinence; N81.10 Cystocele, unspecified; R73.03 Prediabetes; Z79.899 Other long term (current) drug therapy
CPT/HCPCS: 36415; 76830; 76856; 80048; 80053; 81001; 85025; 86592; 99291; G0378; J2405; J2543

== ENCOUNTER → 2024-05-11 | Outpatient (CLI) | payer MEDICAID ==
[~2024-05-11] MED LIST: LEVO500T91 PO; LOSA-534 PO
== END | disposition home or self-care (01) ==
LOC: LAB 07:08
PROVIDERS: ATTEND Internal Medicine
DX: N76.4 Abscess of vulva (principal)
CPT/HCPCS: 87205

== ENCOUNTER → 2024-05-20 | Outpatient (CLI) | payer MEDICAID ==
[2024-05-20 14:09] LABS: Folate (Folic Acid) 36.04 ng/mL (>5.38)
== END | disposition home or self-care (01) ==
LOC: LAB 12:28
PROVIDERS: ATTEND Internal Medicine
DX: D75.89 Other specified diseases of blood and blood-forming organs (principal); I10 Essential (primary) hypertension; Z79.899 Other long term (current) drug therapy
CPT/HCPCS: 82607; 82746